=== PATIENT | female | born 1980 | race African-American/Black ===

== ENCOUNTER 2018-09-24 16:41 | Emergency (ER) | payer OTHER, MEDICAID ==
[~2018-09-24] VITALS: Ht 172.7 cm; Wt 97.7 kg
[2018-09-24 16:58] VITALS: BP 143/79
[2018-09-24] MEDS ORDERED: IBUPROFEN 800 MG TAB PO ONE (17:00)
--- NOTE | 2018-09-24 17:20 | NUR ---
PT AMBULATED TO BED 02.
--- NOTE | 2018-09-24 17:21 | NUR ---
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 HEADACHE 12/27. MED HX: HTN/BREAST CA, PERSONALITY DISORDER. DENIES N/V/D; SKIN IS PINK/WARM/DRY; AAOX4 WITH EVEN AND STEADY GAIT; PATIENT POSITIONED FOR COMFORT; HOB ELEVATED; BEDRAILS UP X2; BED DOWN. ER MD MADE AWARE OF PT STATUS.
--- NOTE | 2018-09-24 17:44 | NUR ---
PROVIDE JUICE & WATER AT THIS TIME
[2018-09-24] MEDS ORDERED: ACETAMINOPHEN EXTRA STRENGTH 500 MG TAB PO ONE (18:25)
--- NOTE | 2018-09-24 18:26 | NUR ---
STREP & INFLUENZA SWAB SPECIMEN SENT TO LAB.
[2018-09-24 18:53] LABS: BILIRUBIN,URINE NEGATIVE (NEGATIVE); BLOOD, URINE NEGATIVE (NEGATIVE); COLOR,URINE YELLOW (YELLOW); LEUKOCYTE ESTERASE ,URINE TRACE (NEGATIVE); NITRITE, URINE NEGATIVE (NEGATIVE); PH,URINE 7.5 (5.0-9.0); UGLUCOSE NEGATIVE (NEGATIVE)
[2018-09-24 19:01] LABS: APPEARANCE,URINE HAZY (CLEAR)
[2018-09-24 19:09] LABS: RBC,URINE NONE SEEN /HPF (0-5); WBC,URINE 20-60 /HPF (0-5)
--- NOTE | 2018-09-24 19:26 | NUR ---
Pt report given to KADEN KERR. Transfer of care at this time.
[2018-09-24] MEDS ORDERED: cefTRIAXone 1,000 MG in LIDOCAINE MPF 1% - 5 mL VIAL 2.1 ML IM ONE (19:30)
[2018-09-24] MEDS ORDERED: cefTRIAXone 1,000 MG VIAL ONE (19:48)
[2018-09-24] MEDS ORDERED: LIDOCAINE MPF 1% 5mL VIAL ONE (19:49)
--- NOTE | 2018-09-24 20:11 | NUR ---
Patient discharged with v/s stable. Written and verbal after care instructions given and explained. Patient alert, oriented and verbalized understanding of instructions. Ambulatory with steady gait. All questions addressed prior to discharge. ID band removed. Patient advised to follow up with PMD. Rx of KEFLEX, AND TYLENOL given. Patient educated on indication of medication including possible reaction and side effects. Opportunity to ask questions provided and answered. PT ACCOMPANIED BY CAREGIVER TO GO HOME TO FACILITY.
[2018-09-24 20:12] VITALS: BP 103/63
== END 2018-09-24 20:11 | disposition home or self-care (01) ==
LOC: MED 16:41
DX: I10 Essential (primary) hypertension (principal); Z85.3 Personal history of malignant neoplasm of breast; Z90.710 Acquired absence of both cervix and uterus
CPT/HCPCS: 81001; 81025; 87081; 87086; 87804; 96372; 99283; J0696; J2001

== ENCOUNTER 2018-12-11 20:04 | Emergency (ER) | payer OTHER, MEDICAID ==
[~2018-12-11] VITALS: Ht 172.7 cm; Wt 86.2 kg
[2018-12-11 20:10] VITALS: BP 129/87
--- NOTE | 2018-12-11 20:13 | NUR ---
TO LOBBY A/W BED, AMBULATORY
--- NOTE | 2018-12-11 22:02 | NUR ---
PATIENT PRESENTS TO ED WITH C/O NAUSEA/VOMITING, COUGH, ABD PAIN. PT STATES SHE HAS BEEN VOMITING PHLEGM. PATIENT STATES PAIN OF 6/10 AT THIS TIME; VSS; PATIENT POSITIONED FOR COMFORT; HOB ELEVATED; BEDRAILS UP X2; BED DOWN. ER MD MADE AWARE OF PT STATUS.
--- NOTE | 2018-12-11 22:02 | NUR ---
PT AMBULATED TO BED 1
[2018-12-11] MEDS ORDERED: ONDANSETRON 4 MG ODT PO ONE (22:30)
[2018-12-11 23:35] VITALS: BP 121/91
--- NOTE | 2018-12-11 23:35 | NUR ---
Patient discharged with v/s stable. Written and verbal after care instructions given and explained. Patient alert, oriented and verbalized understanding of instructions. Ambulatory with steady gait. All questions addressed prior to discharge. ID band removed. Patient advised to follow up with PMD. Rx of ELIXIR 10ML, ZOFRAN ODT 4MG given. Patient educated on indication of medication including possible reaction and side effects. Opportunity to ask questions provided and answered.
== END 2018-12-11 23:35 | disposition home or self-care (01) ==
LOC: MED 20:04
DX: K56.7 Ileus, unspecified (principal); I10 Essential (primary) hypertension
CPT/HCPCS: 74022; 99283; Q0162

== ENCOUNTER 2019-03-04 16:58 | Emergency (ER) | payer OTHER, MEDICAID ==
[~2019-03-04] VITALS: Ht 172.7 cm; Wt 68.0 kg
[2019-03-04 17:02] VITALS: BP 139/81
--- NOTE | 2019-03-04 17:09 | NUR ---
PT AMB TO [facility]
--- NOTE | 2019-03-04 17:19 | NUR ---
PT BIB SELF FOR RASH TO LEFT FOREARM AND NOW SPREADING TO RT HAND AND FOREARM. RED PAPULAR RAISED RASH NOTED TO AREA. PT STATES SHE WORKS AT A [employer] AND THEY ARE USING NEW SOAP. PT ALSO WEARS GLOVES AT WORK THAT COVER UP TO UPPER ARM. PT IN NO RR DISTRESS, SITTING IN CHAIR CALM.
--- NOTE | 2019-03-04 17:43 | NUR ---
RODERICK DELCID EVALUATING PT
[2019-03-04 18:15] VITALS: BP 145/76
--- NOTE | 2019-03-04 18:15 | NUR ---
Patient discharged with v/s stable. Written and verbal after care instructions given and explained. Patient alert, oriented and verbalized understanding of instructions. Ambulatory with steady gait. All questions addressed prior to discharge. ID band removed. Patient advised to follow up with PMD. Rx of ATARAX, HYDROCORTISONE given. Patient educated on indication of medication including possible reaction and side effects. Opportunity to ask questions provided and answered. PT TO WAIT IN LOBBY FOR UBER RIDE.
--- NOTE | 2019-03-04 18:20 | NUR ---
Note [email or web address] in EDM - 03/04/19 at 1822 by DOMINGA Patient discharged with v/s stable. Written and verbal after care instructions given and explained. Patient alert, oriented and verbalized understanding of instructions. Ambulatory with steady gait. All questions addressed prior to discharge. ID band removed. Patient advised to follow up with PMD. Rx of HYDROCORTISONE, ATARAX given. Patient educated on indication of medication including possible reaction and side effects. Opportunity to ask questions provided and answered.
== END 2019-03-04 18:15 | disposition home or self-care (01) ==
LOC: MED 16:58
DX: L25.9 Unspecified contact dermatitis, unspecified cause (principal); I10 Essential (primary) hypertension
CPT/HCPCS: 99283

== ENCOUNTER 2019-04-07 09:36 | Emergency (ER) | payer OTHER, MEDICAID ==
[~2019-04-07] VITALS: Ht 172.7 cm; Wt 89.8 kg
[2019-04-07 09:40] VITALS: BP 133/80
--- NOTE | 2019-04-07 10:10 | NUR ---
Dr. Dela Cruz is evaluating the patient at bedside.
--- NOTE | 2019-04-07 10:13 | NUR ---
PT PRESENTS TO THE ED WITH C/O SCRATCHES TO L WRIST. PT STATES "I FEEL LIKE I HAVE A WHOLE LOTTA STRESS SO I TAKE LITTLE OBJECTS AND JUST DO ANYTHING ON MY SKIN, IT RELIEVES MY ANGER. 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 PT DENIES WANTING TO PERFORM SELF HARM AND SI AT THIS TIME. PT STATES THAT SHE LIVES IN A ALF AND STATES "STAFF TOOK ALL THE OBJECTS AWAY FROM ME." PT DENIES PAIN TO SCRATCHES ON L WRIST AND SAYS ITS JUST SORE/TENDER. REDNESS NOTED TO SCRATCHES ON L WRIST, NO FRESH BLOOD NOTED. PT PRESENTS WITH A CLEAR SPEECH AND IS ABLE TO ANSWER QUESTIONS AND CONVERSE APPROPRIATELY. PT DENEIS N/V/D, CP AND SOB AT THIS TIME. PT POSITIONED FOR COMFORT. BED RAILS UP X 2 FOR PT SAFETY. ER MD TO SEE PT. [facility] HX: SEIZURES, HTN, BREAST CANCER RX: PT CAN'T RECALL MED NAME
[2019-04-07] MEDS ORDERED: CEPHALEXIN 500 MG CAP PO ONE (10:30)
[2019-04-07] MEDS ORDERED: hydrOXYzine HCL 25 MG TAB PO ONE (10:30)
[2019-04-07] MEDS ORDERED: BACITRACIN OINT 500 UNITS/GM PKT TP ONE (10:55)
--- NOTE | 2019-04-07 11:08 | NUR ---
EMT PERFORMING WOUND CARE DRESSING AT BEDSIDE
--- NOTE | 2019-04-07 11:12 | NUR ---
Patient discharged with v/s stable. Written and verbal after care instructions given and explained. Patient alert, oriented and verbalized understanding of instructions. Ambulatory with steady gait. All questions addressed prior to discharge. ID band removed. Patient advised to follow up with PMD. Rx of BACTRIM AND KEFLEX given. Patient educated on indication of medication including possible reaction and side effects. Opportunity to ask questions provided and answered.
[2019-04-07 11:13] VITALS: BP 128/78
== END 2019-04-07 11:12 | disposition home or self-care (01) ==
LOC: MED 09:36
DX: S60.812A Abrasion of left wrist, initial encounter (principal); I10 Essential (primary) hypertension; Y33.XXXA Other specified events, undetermined intent, initial encounter; Y93.89 Activity, other specified; Y92.89 Other specified places as the place of occurrence of the external cause; Y99.8 Other external cause status; Z85.3 Personal history of malignant neoplasm of breast
CPT/HCPCS: 90471; 90715; 99284